=== PATIENT | female | born 1990 | race Caucasian/White ===

== ENCOUNTER 2016-06-12 14:46 | Emergency (ER) | payer OTHER ==
[~2016-06-12] VITALS: Ht 165.1 cm; Wt 65.0 kg
[2016-06-12 14:47] VITALS: BP 145/98; PULSE 69; RESP 18; TEMP 98.8; O2SAT 99
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
[2016-06-12] MEDS ORDERED: ONDANSETRON ODT 4 MG TAB PO ONE (15:00)
[2016-06-12] MEDS ORDERED: IBUPROFEN 800 MG TAB PO ONE (15:00)
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
== END 2016-06-13 10:02 | disposition home or self-care (01) ==
LOC: NEPD 14:46 → NEPF 06-13 10:02
DX: T76.21XA Adult sexual abuse, suspected, initial encounter (principal); S20.212A Contusion of left front wall of thorax, initial encounter; R51 Headache; R11.0 Nausea; Y07.59 Other non-family member, perpetrator of maltreatment and neglect
CPT/HCPCS: 99283